=== PATIENT | female | born 1965 | race African-American/Black ===

== ENCOUNTER 2016-09-30 18:26 | Inpatient (IN) | payer OTHER ==
[~2016-09-30] VITALS: Ht 167.6 cm; Wt 158.8 kg
--- NOTE | ~2016-09-30 | PN ---
Unit #: [id number] #: [id number] Patient: RONDA LEMONS [id number] [facility] [address] [place] [address] [id number] MR#: [id number] NAME: RONDA LEMONS. ROOM: P212 Age: 51 Sex: F Admission Date: 09/30/2016 : 1965 Attending Physician: Melia Sandhu M.D. Admitting Physician: Melia Sandhu M.D. Primary Care Physician: Yahaira Barnett PROGRESS NOTES DATE OF SERVICE 10/07/2016 DISCUSSION Ms. Lemnos is a 51-year-old female who was seen today. Chart was reviewed and case was discussed with the staff. She has been anxious, withdrawn, and rather seclusive to herself. He reports persistent depressive symptoms. Meanwhile, she has been taking the medications and tolerating them fairly well with no reported side effects. MENTAL STATUS EXAMINATION Middle-aged female who is casually dressed with fair personal hygiene, appears to be in no acute distress or discomfort. She was awake and alert with impaired attention and concentration. Her mood is anxious and depressed with congruent affect. Speech is slow and restricted in content. She denies any suicidal or homicidal ideations and also denies any auditory or visual hallucinations. Her insight and judgment remain slightly impaired. TREATMENT PLAN 1. We will continue her on her current medications and treatment protocol. We will monitor her response to the medications and make further adjustments as needed. 2. We will continue to follow up. Dictated by... Yahaira Bullard/carolyn TD: 10/08/2016 07:25 JOB #: [id number] Unit #: [id number] #: [id number] Patient: RONDA LEMONS JONAH PROGRESS NOTES Page 1 of 1 X Melia Sandhu MD PROGRESS NOTE
--- NOTE | ~2016-09-30 | PN ---
Unit #: [id number] #: [id number] Patient: RONDA LEMONS [id number] [facility] [address] [place] [address] [id number] I MR#: [id number] NAME: RONDA LEMONS. ROOM: P212 Age: 51 Sex: F Admission Date: 09/30/2016 : 1965 Attending Physician: Melia Sandhu M.D. Admitting Physician: Melia Sandhu M.D. Primary Care Physician: Yahaira Barnett PROGRESS NOTES DATE 10/03/2016 DISCUSSION Ms. Lemons is a 51-year-old female who was seen today and chart was reviewed and case was discussed with the staff. She has been anxious, withdrawn and rather seclusive to herself. Meanwhile, she has been cooperative with treatment recommendations and has been taking medications and tolerating them fairly well with no reported side effects. MENTAL STATUS EXAMINATION Middle-aged female who was casually dressed with fair personal hygiene and appears to be in no acute distress or discomfort. She was awake and alert with impaired attention and concentration. Her mood was anxious with congruent affect. She denies any suicidal or homicidal ideations. Her insight and judgement remains slightly impaired. TREATMENT PLAN 1. Will continue on current medications and treatment protocol. Will monitor her response to the medications and make further adjustments as needed. 2. Will continue to follow up. Dictated by... Yahaira Bullard/kayli TD: 10/03/2016 16:20 JOB #: [id number] Unit #: [id number] #: [id number] Patient: RONDA LEMONS PROGRESS NOTES Page 1 of 1 X Melia Sandhu MD X PROGRESS NOTE
--- NOTE | ~2016-09-30 | PN ---
Unit #: [id number] #: [id number] Patient: RONDA LEMONS [id number] [facility] [address] [place] [address] [id number] MR#: [id number] NAME: RONDA LEMONS. ROOM: P212 Age: 51 Sex: F Admission Date: 09/30/2016 : 1965 Attending Physician: Melia Sandhu M.D. Admitting Physician: Melia Sandhu M.D. Primary Care Physician: Yahaira Barnett PROGRESS NOTES DATE OF SERVICE: 10/08/2016 SUBJECTIVE Ms. Lemons is a 51-year-old female, who was seen today and chart was reviewed and case was discussed with the staff. She has been anxious, withdrawn, and rather seclusive to herself. Meanwhile, she has been cooperative with treatment recommendations and has been taking the medications and tolerating them fairly well with no reported side effects. MENTAL STATUS EXAMINATION Middle-aged female, who was casually dressed with fair personal hygiene, appears to be in no acute distress or discomfort. She was awake and alert on interaction with intact orientation. Her mood was anxious with a congruent affect. She denies any suicidal or homicidal ideations and also denies any auditory or visual hallucinations. Her insight and judgment remain slightly impaired. TREATMENT PLAN 1. We will continue her on her current medications and treatment protocol. We will monitor her response to the medications and we will make further adjustments as needed. 2. We will continue to follow up. Dictated by... Yahaira Bullard/fannie TD: 10/09/2016 01:08 JOB #: [id number] JONAH PROGRESS NOTES Page 1 of 1 X Melia Sandhu MD PROGRESS NOTE
--- NOTE | ~2016-09-30 | PN ---
Unit #: [id number] #: [id number] Patient: RONDA LEMONS [id number] [facility] [address] [place] [address] [id number] I MR#: [id number] NAME: RONDA LEMONS. ROOM: P212 Age: 51 Sex: F Admission Date: 09/30/2016 : 1965 Attending Physician: Melia Sandhu M.D. Admitting Physician: eMlia Sandhu M.D. Primary Care Physician: Kiesha Barrett M.D. PEAJEWEL PROGRESS NOTES DATE October 02, 2016 DISCUSSION Ms. Lemons is a 51-year-old female, who was seen today and chart was reviewed and the case was discussed with the staff. The patient remains anxious, withdrawn, and rather seclusive to herself. Meanwhile, she has been cooperative with the treatment recommendations and she has been taking the medications and tolerating them fairly well with no reported side effects. MENTAL STATUS EXAMINATION Middle-aged female, who was casually dressed with fair personal hygiene and appears to be in no acute distress or discomfort. She was awake and alert with impaired attention and concentration. Her mood was anxious with a congruent affect. She denies any suicidal or homicidal ideations. Her insight and judgment remain slightly impaired. TREATMENT PLAN 1. We will continue her on her current medications and treatment protocol, and will monitor her response to the medications, and make further adjustments as needed. 2. We will continue to followup. Dictated by... Yahaira Bullard/cee TD: 10/02/2016 09:33 JOB #: [id number] Unit #: [id number] #: [id number] Patient: RONDA LEMONS PROGRESS NOTES Page 1 of 1 X Melia aSndhu MD PROGRESS NOTE
--- NOTE | ~2016-09-30 | DS ---
Unit #: [id number] #: [id number] Patient: RONDA ARTEAGA [id number] [facility] [address] [place] [address] [id number] I MR#: [id number] NAME: RONDA ARTEAGA. ROOM: P212 Age: 51 Sex: F Admission Date: 09/30/2016 : 1965 Discharge Date: 10/09/2016 Attending Physician: Melia Sandhu M.D. Primary Care Physician: Kiesha Barrett M.D. DISCHARGE SUMMARY IDENTIFYING DATA Ms. Arteaga is a 51-year-old single female, who is a resident of [place], [place], and is known to us from previous encounter and was self-referred to the hospital on a voluntary basis. DISCHARGE DIAGNOSES Psychiatric: Major depressive disorder, recurrent, moderate, without psychotic features; alcohol dependence, moderate, in acute withdrawals; and cocaine dependence, moderate. Medical: Obesity, hypertension, hypothyroidism, and chronic pain. Stressors: Moderate psychosocial stressors. HISTORY OF PRESENT ILLNESS Ms. Arteaga is a 51-year-old female with dual diagnosis of mood disorder and substance abuse, who was self-referred to the hospital reporting increasing depression, suicidal ideations, and feelings of hopelessness and helplessness, and a plan to cut her wrist and reports that she relapsed on alcohol and crack cocaine approximately 2 weeks ago and has been using alcohol and crack on a daily basis and has been having significant withdrawal symptoms and has not taken any medication for the last 2 weeks and as such, has been decompensating and was seen to be a danger to self and therefore, recommendation for inpatient level of care for safety and stabilization was made and the patient was stepped up to the inpatient unit. PAST PSYCHIATRIC HISTORY The patient has had a history of multiple inpatient psychiatric and chemical dependency treatments including being at [facility] several times in addition to being at [facility], and review of the medical records indicate that she is supposed to be on a combination of Wellbutrin, Seroquel, and Effexor, but has been noncompliant with the medications and as such, has been decompensating. PAST MEDICAL HISTORY Significant for hypothyroidism, hypertension, obesity, and chronic pain. HOSPITAL COURSE The patient was admitted to the adult [facility] at [facility] and was oriented to the hospital environment. Routine p.r.n. medications were initiated and she was started back on her home medications and medications were adjusted and detox protocol was initiated. The patient was exhibiting some significant persistent depressive symptoms and was seen to be very seclusive and guarded, unable Unit #: [id number] #: [id number] Patient: RONDA ARTEAGA to function and interact or socialize; however, she was cooperative with treatment recommendations and was taking medications regularly and was tolerating them fairly well and was able to show a decent therapeutic response with improvement in depression and anxiety, and as such, it was decided that she will be discharged home and will continue treatment on an outpatient basis. DISCHARGE MEDICATIONS Effexor XR 150 mg in the morning for depression and Seroquel 100 mg at bedtime for depression. DISCHARGE CONDITION Stable. PROGNOSIS Fair. Dictated by... Melia Sandhu M.D. LUCIANA/fannie TD: 10/09/2016 07:24 JOB #: [id number] DISCHARGE SUMMARY Page 1 of 1 X Melia Sandhu MD X DISCHARGE SUMMARY
--- NOTE | ~2016-09-30 | PN ---
Unit #: [id number] #: [id number] Patient: RONDA LEMONS [id number] [facility] [address] [place] [address] [id number] I MR#: [id number] NAME: RONDA LEMONS. ROOM: P212 Age: 51 Sex: F Admission Date: 09/30/2016 : 1965 Attending Physician: Melia Sandhu M.D. Admitting Physician: Melia Sandhu M.D. Primary Care Physician: Kiesha Barrett M.D. PEAJEWEL PROGRESS NOTES DATE October 06, 2016 DISCUSSION Ms. Lemons is a 51-year-old female, who was seen today and chart was reviewed and the case was discussed with the staff. The patient has been anxious, withdrawn, and rather seclusive to herself. Meanwhile, she has been compliant with the treatment recommendations and she has been taking the medications and tolerating them fairly well with no reported side effects. MENTAL STATUS EXAMINATION Middle-aged female, who was casually dressed with fair personal hygiene and appears to be in no acute distress or discomfort. The patient was awake and alert with impaired attention and concentration. Her mood was anxious with a congruent affect. She denies any suicidal or homicidal ideations. Her insight and judgment remain slightly impaired. TREATMENT PLAN 1. We will continue her on her current medications and treatment protocol, and will monitor her response to the medications, and make further adjustments as needed. 2. We will continue to followup. Dictated by... Yahaira Bullard/cee TD: 10/07/2016 12:44 JOB #: [id number] Unit #: [id number] #: [id number] Patient: RONDA LEMONS PROGRESS NOTES Page 1 of 1 X Melia Sandhu MD PROGRESS NOTE
--- NOTE | ~2016-09-30 | PN ---
Unit #: [id number] #: [id number] Patient: RONDA LEMONS [id number] [facility] [address] [place] [address] [id number] I MR#: [id number] NAME: RONDA LEMONS. ROOM: P212 Age: 51 Sex: F Admission Date: 09/30/2016 : 1965 Attending Physician: Meila Sandhu M.D. Admitting Physician: Melia Sandhu M.D. Primary Care Physician: Yahaira Barnett PROGRESS NOTES DATE OF SERVICE 10/04/2016 DISCUSSION Ms. Lemons is a 51-year-old female who was seen today. Chart was reviewed and case was discussed with the staff. She appears to be doing somewhat better and has been able to come out of her room a little bit and socialize. However, she reports persistent depressive symptoms with feelings of hopelessness. She has been taking the medications and tolerating them fairly well with no reported side effects. MENTAL STATUS EXAMINATION Middle-aged female who is casually dressed with fair personal hygiene, appears to be in no acute distress or discomfort. The patient was awake and alert with impaired attention and concentration. Her mood is anxious and depressed with congruent affect. Speech is slow and restricted in content. She reports having suicidal ideation but denies any homicidal ideation. Her insight and judgment remain slightly impaired. TREATMENT PLAN 1. We will continue her on her current medications and treatment protocol. We will monitor her response to the medications and make further adjustments as needed. 2. We will continue to follow up. Dictated by... Yahaira Bullard/bzg TD: 10/04/2016 12:21 JOB #: [id number] Unit #: [id number] #: [id number] Patient: RONDA LEMONS JONAH PROGRESS NOTES Page 1 of 1 X Melia Sandhu MD PROGRESS NOTE
--- NOTE | ~2016-09-30 | PA ---
Unit #: [id number] #: [id number] Patient: RONDA ARTEAGA [id number] [facility] [address] [place] [address] [id number] I MR#: [id number] NAME: RONDA ARTEAGA. ROOM: P212 Age: 51 Sex: F Admission Date: 09/30/2016 : 1965 Date of Assessment: Attending Physician: Melia Sandhu M.D. Admitting Physician: Melia Sandhu M.D. Primary Care Physician: Kiesha Barrett M.D. PSYCHIATRIC ASSESSMENT DATE OF SERVICE 10/01/2016. IDENTIFYING DATA Ms. Arteaga is a 51-year-old single female, who is a resident of [place], [place], and is known to us from previous encounter and was self-referred to the hospital on a voluntary basis. CHIEF COMPLAINT "Suicidal ideations with a plan to cut my wrist." HISTORY OF PRESENT ILLNESS Ms. Arteaga is a 51-year-old female with dual diagnosis of mood disorder and substance abuse, who was self-referred to the hospital reporting increasing depression, suicidal ideations, and feelings of hopelessness and helplessness, and a plan to cut her wrist and reports that she relapsed on alcohol and crack cocaine approximately 2 weeks ago and has been using alcohol and crack on a daily basis and has been having significant withdrawal symptoms and has not taken any medication for the last 2 weeks and as such, has been decompensating and was seen to be a danger to self and therefore, recommendation for inpatient level of care for safety and stabilization was made and the patient was stepped up to the inpatient unit. SUBSTANCE ABUSE HISTORY The patient reports extensive history of substance abuse indicating that she has experimented with alcohol, cannabis, cocaine, opioids, and currently, alcohol and cocaine have been her drug of choice as she reports that she has been drinking 2 pints of alcohol a day and has been using 2 to 3 g of crack cocaine on a daily basis. PAST PSYCHIATRIC HISTORY The patient has had a history of multiple inpatient psychiatric and chemical dependency treatments including being at [facility] in addition to being at [facility], and review of the medical records indicate that she is supposed to be on a combination of Wellbutrin, Seroquel, and Effexor, but has been noncompliant with the medications and as such, has been decompensating. PAST MEDICAL HISTORY Significant for hypothyroidism, hypertension, obesity, and chronic pain. ALLERGIES Unit #: [id number] #: [id number] Patient: RONDA ARTEAGA No known medication allergies. PERSONAL AND SOCIAL HISTORY A 51-year-old female, who reports that she is single, unemployed, and essentially homeless and has poor social support system. MENTAL STATUS EXAMINATION Middle-aged, obese, female, who was casually dressed with fair personal hygiene, appears to be in no acute distress or discomfort. She was awake and alert with impaired attention and concentration. Her mood was anxious and depressed with a congruent affect. Her speech was slow and restricted in content. Her thought processes were disorganized with some looseness of associations and suicidal ideations. Her insight and judgment remain significantly impaired. DIAGNOSTIC IMPRESSION Psychiatric: Major depressive disorder, recurrent, moderate, without psychotic features; alcohol dependence, moderate, in acute withdrawals; and cocaine dependence, moderate. Medical: Obesity, hypertension, hypothyroidism, and chronic pain. Stressors: Moderate psychosocial stressors. TREATMENT PLAN 1. The patient has presented with a history of substance abuse and mood disorder and has been decompensating. We will recommend inpatient hospitalization for safety and stabilization. We will start her back on her home medications. We will adjust the medications and monitor response. 2. Supportive therapy was provided to the patient. 3. Safe, structured, and nourishing environment will be provided. ESTIMATED LENGTH OF STAY 5 to 7 days. ABILITY TO HELP SELF Limited. WILLINGNESS TO HELP SELF The patient appears to be willing to help self. STRENGTHS 1. Communicative. 2. Cooperative. PROBLEMS 1. Chronic dysphoric symptoms. 2. Chronic chemical dependency. 3. Poor social support system. DISCHARGE CRITERIA This will be contingent upon the patient's ability to show resolution of her depression and anxiety and her ability to stay safe to herself, particularly after discharge from the hospital. Dictated by... Melia Sandhu M.D. Unit #: [id number] #: [id number] Patient: RONDA ARTEAGA IAA/modl TD: 10/01/2016 13:31 JOB #: [id number] PSYCHIATRIC ASSESSMENT Page 1 of 1 X Melia Sandhu MD PSYCHIATRIC ASSESSMENT
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
--- NOTE | ~2016-09-30 | PN ---
Unit #: [id number] #: [id number] Patient: RONDA LEMONS [id number] [facility] [address] [place] [address] [id number] MR#: [id number] NAME: RONDA LEMONS. ROOM: P212 Age: 51 Sex: F Admission Date: 09/30/2016 : 1965 Attending Physician: Melia Sandhu M.D. Admitting Physician: Melia Sandhu M.D. Primary Care Physician: Yahaira Barnett PROGRESS NOTES DATE 10/05/16 DISCUSSION Ms. Lemons is a 51-year-old female who was seen today, chart reviewed, and her case was discussed with the staff. Patient has been anxious, withdrawal, and seclusive to herself. She has been cooperative with treatment plan, and she has been taking medications and tolerating them fairly well with no reported side effects. MENTAL STATUS EXAMINATION A middle-aged female who was casually dressed with fair personal hygiene and appears to be in no acute distress or discomfort. She was awake and alert on interaction with intact orientation. Her mood was anxious with a congruent affect. Her speech was slow and goal directed. Patient denied any suicidal or homicidal ideations and denied any auditory or visual hallucinations. Her insight and judgment remain significantly impaired. TREATMENT PLAN 1. Will continue her on her current medications and treatment protocol. We will monitor her response to the medications and make further adjustments as needed. 2. Will continue to follow. 1. Dictated by... Yahaira Bullard/sharon TD: 10/06/2016 16:54 JOB #: [id number] Unit #: [id number] #: [id number] Patient: RONDA LEMONS PROGRESS NOTES Page 1 of 1 X Melia Sandhu MD X PROGRESS NOTE
[~2016-09-30 18:26] MED LIST: BACTRIM DS TABL1 TA2 PO; CELEXA PO; CITALOPRAM HBR40 MG PO; ESTRADIOL1 MG PO; HYDROCHLOROTHIA25 MG PO; KEFLEX500 M1 PO; LEVOTHROID100 MC1 PO; LISINOPRIL PO; LISINOPRIL20 MG PO; MOBIC PO; SYNTHROID0.1 MG PO; TRAMADOL HCL50 M1 PO; ZITHROMAX
[2016-10-01 12:39] LABS: URINE APPEARANCE CLEAR; URINE BILIRUBIN NEG (NEG); URINE BLOOD NEG (NEG); URINE COLOR YELLOW; URINE GLUCOSE NEG (NEG); URINE KETONE NEG (NEG); URINE LEUKOCYTE ESTERASE NEG (NEG); URINE NITRATE NEG (NEG); URINE PH 5.5 (5-8); URINE PROTEIN NEG (NEG); URINE SPECIFIC GRAVITY 1.023 (1.003-1.035)
[2016-10-01 13:18] LABS: AMPHETAMINE NEG (NEG); BARBITURATES NEG (NEG); BENZODIAZEPINES NEG (NEG); COCAINE POS (NEG); MARIJUANA POS (NEG); OPIATES POS (NEG); TRICYCLIC ANTIDEPRESSANTS NEG (NEG); U METHADONE NEG (NEG)
[2016-10-02 10:01] LABS: BASOPHIL% 0.9 % (0-2.5); EOSINOPHIL# 0.1 X10e3 (0-0.7); EOSINOPHIL% 2.8 % (0.0-7.0); HEMATOCRIT 33.1 % (35.0-45.0); HEMOGLOBIN 10.9 gm/dL (12.0-16.0); LYMPHOCYTE# 1.4 X10e3 (1.0-3.5); LYMPHOCYTE% 42.3 % (17.0-45.0); MEAN PLATELET VOLUME 8.2 FL (6.5-11.5); MONOCYTE# 0.3 X10e3 (0-1.0); MONOCYTE% 9.8 % (3.0-12.0); NEUTROPHIL# 1.5 X10e3 (1.5-7.1); NEUTROPHIL% 44.2 % (40-75); PLATELET COUNT 254 X10e3 (140-420); RED BLOOD COUNT 3.64 X10e (3.90-5.30); RED CELL DISTRIBUTION WIDTH 14.2 % (11.0-15.5); WHITE BLOOD COUNT 3.4 X10e3 (4.0-10.5)
[2016-10-02 10:10] LABS: ALBUMIN SERUM 3.5 g/dL (3.5-5.0); BILIRUBIN,TOTAL 0.5 mg/dL (0.2-2.0); BUN/CREATININE RATIO 15.45; CALCIUM SERUM 8.5 mg/dL (8.4-10.2); CREATININE SERUM 1.1 mg/dL (0.6-1.4); GLOM FILT RATE Estimated 66.9 mL/min (>60); POTASSIUM 3.9 mmol/L (3.5-5.1); PROTEIN TOTAL SERUM 6.5 g/dL (6.0-8.3)
[2016-10-02 10:15] LABS: DIFF IND NO
== END 2016-10-09 10:46 | disposition home or self-care (01) | DRG 885 ==
LOC: P2S 20:09
PROVIDERS: Psychiatry & Neurology Psychiatry
PROC: HZ2ZZZZ Detoxification Services for Substance Abuse Treatment (ICD-10-PCS; principal; 2016-09-30)
DX: F33.1 Major depressive disorder, recurrent, moderate (principal); F14.20 Cocaine dependence, uncomplicated; R45.851 Suicidal ideations; F10.230 Alcohol dependence with withdrawal, uncomplicated; Z68.43 Body mass index [BMI] 50.0-59.9, adult; I10 Essential (primary) hypertension; E03.9 Hypothyroidism, unspecified; G89.29 Other chronic pain; Z59.0 Homelessness; E11.9 Type 2 diabetes mellitus without complications; Z90.710 Acquired absence of both cervix and uterus; Z79.84 Long term (current) use of oral hypoglycemic drugs; F17.210 Nicotine dependence, cigarettes, uncomplicated; J44.9 Chronic obstructive pulmonary disease, unspecified; E66.01 Morbid (severe) obesity due to excess calories
CPT/HCPCS: 80053; 80307; 81003; 84703; 85025; 86592